=== PATIENT | female | born 1995 | race Caucasian/White ===

== ENCOUNTER 2016-03-09 15:15 | Emergency (ER) | payer BC, OTHER ==
[~2016-03-09] VITALS: Ht 167.6 cm; Wt 59.1 kg
[~2016-03-09 15:15] MED LIST: MAGIC1 PO
[2016-03-09 15:34] VITALS: BP 119/75; PULSE 113; TEMP 37.2; O2SAT 100; Ht 167.6 cm; Wt 59.1 kg
== END 2016-03-09 16:10 | disposition left against medical advice (07) ==
LOC: C.EDB 15:16
DX: R05 Cough (principal)

== ENCOUNTER → 2016-04-06 | Outpatient (CLI) | payer BC, OTHER ==
[2016-04-08 03:42] LABS: CHLAMYDIA TRACH RNA*** NOT DETECTED (NOT DETECTED); GC (NEIS GONORRHOEAE)RNA** NOT DETECTED (NOT DETECTED)
== END | disposition home or self-care (01) ==
LOC: C.LABSPEC 17:52
PROVIDERS: ATTEND Obstetrics & Gynecology
DX: Z11.3 Encounter for screening for infections with a predominantly sexual mode of transmission (principal)

== ENCOUNTER 2017-04-08 15:05 | Emergency (ER) | payer OTHER ==
[~2017-04-08] VITALS: Ht 175.3 cm; Wt 64.6 kg
[2017-04-08 15:15] VITALS: TEMP 36.8; Ht 175.3 cm; Wt 64.6 kg
[2017-04-08] MEDS ORDERED: PROPARACAINE HCL 0.5% OP SOLN 15 ML BTL ONE (15:22)
[2017-04-08] MEDS ORDERED: BCPILLS PO (16:01)
[2017-04-08 16:25] LABS: BASO % 0.3 %; BASO ABS # 0.03 K/uL (0-0.2); EOS % 0.5 %; EOS ABS # 0.05 K/uL (0-0.5); HEMATOCRIT 42.3 % (37-47); HEMOGLOBIN 13.9 g/dL (12.0-16.0); IG# 0.01 K/uL (0.00-0.02); LYMPH % 25.6 %; LYMPH ABS # 2.58 K/uL (1.2-3.4); MEAN CELL VOLUME 90.2 fL (80-100); MEAN CORPUSCULAR HEMOGLOBIN 29.6 pg (25-34); MEAN CORPUSCULAR HGB CONC 32.9 g/dl (32-36); MEAN PLATELET VOLUME 11.1 fL (7.4-10.4); MONO % 5.3 %; MONO ABS # 0.53 K/uL (0.11-0.59); NEUT % 68.2 %; NEUT ABS # 6.86 K/uL (1.4-6.5); PLATELET COUNT 338 K/uL (130-400); RED CELL DISTRIBUTION WIDTH CV 14.3 % (11.5-14.5); RED CELL DISTRIBUTION WIDTH SD 46.6 fL (36.4-46.3); WHITE BLOOD COUNT 10.06 K/uL (4.8-10.8)
--- NOTE | 2017-04-08 16:32 | DIAGNOSTIC IMAGING REPORT ---
HEAD CT NONCONTRAST CT DOSE: 638.56 mGycm HISTORY: R eye pain, R temporal pain. Photosensitivity TECHNIQUE: Multiaxial CT images of the head were performed without the use of intravenous contrast. Automated exposure control was utilized for this study. A dose lowering technique was utilized adhering to the principles of ALARA. Comparison: None. Findings: The paranasal sinuses and mastoid air cells are clear. The calvarium and skull base are intact. The ventricles and sulci are within normal limits. There is no mass, hematoma, midline shift, or acute infarct. Impression: No acute intracranial abnormality. Electronically signed by: Myles Craft M.D. 04/08/2017 4:31 PM Dictated Date/Time: 04/08/2017 4:09 PM
[2017-04-08 16:47] LABS: ALT/SGPT 23 U/L (12-78); AST/SGOT 13 U/L (15-37); BLOOD UREA NITROGEN 21 mg/dl (7-18); CALCIUM 9.3 mg/dl (8.5-10.1); CARBON DIOXIDE 28 mmol/L (21-32); CREATININE 0.69 mg/dl (0.60-1.20); GLUCOSE 85 mg/dl (70-99); POTASSIUM 4.2 mmol/L (3.5-5.1); SODIUM 135 mmol/L (136-145)
[2017-04-08 16:50] LABS: ALKALINE PHOSPHATASE 86 U/L (45-117); TOTAL PROTEIN 8.3 gm/dl (6.4-8.2)
--- NOTE | 2017-04-08 18:18 | EMERGENCY ROOM VISIT NOTE ---
History First contact with patient: 15:24 Chief Complaint: EYE ASSESSMENT Stated Complaint: PAIN IN [place]INDU[place], WATERY EYES X'S 5 DAYS History of Present Illness The patient is a 21 year old female who presents to the Emergency Room via private vehicle accompanied by mother with complaints of "pain in [place], watery eyes 5 days". The patient states that she has had pain in her right presybeterian for the past 5 days. She states it began Wednesday. There is no trauma. There is no migraine or headache history. She's never had this before. It is in the right pole region and now notes that her right eye is becoming involved and is steering/lack remaining a lot. She notes photosensitivity. She also notes blurry vision from the right eye. She states that in class today it was difficult reading the screen from the right eye. She denies any true eye pain rather it's more behind into the side of the eye. Review of Systems A complete 10-point Review of Systems was discussed with the patient, with pertinent positives and negatives listed in the History of Present Illness. All remaining Review of Systems questions can be considered negative unless otherwise specified. Past Medical/Surgical History Medical Problems: (1) Herpes zoster (2) Migraine Social History Smoking Status: Never Smoker Housing Status: lives with family Occupation Status: student Current/Historical Medications Scheduled Control Pills ( Control Pills), 1 TAB PO DAILY Physical Exam Vital Signs Date Time Temp Pulse Resp B/P (MAP) Pulse Ox O2 Delivery O2 Flow Rate FiO2 04/08/17 18:40 71 16 111/71 99 04/08/17 17:10 74 16 107/68 100 Room Air 04/08/17 15:15 36.8 76 17 127/66 100 Room Air Right Eye Acuity: 20/13 Left Eye Acuity: 20/15 Physical Exam VITAL SIGNS - Vital signs and nursing notes were reviewed. Stable. GENERAL -21-year-old female appearing her stated age who is in no acute distress. Communicates well with provider and answers questions appropriately. SKIN - Without rashes. No petechia or meningeal rash. The skin overlying the right eye is unremarkable. HEAD - NC/AT. EYES - PERRL with EOMI bilaterally. Sclera anicteric. Slit lamp as further described. There is no abnormality noted to inspection of the right eye other than the eyelid is partially closed. EARS - No deformities of external structures noted on gross examination bilaterally. External auditory canals without discharge or otorrhea. Tympanic membranes pearly berg without retraction or bulging. No fluid or purulent material visualized behind the TM. Handle of malleus, umbo, cone of light, pars tensa/flaccid all easily visualized. NOSE - No epistaxis or purulent drainage noted. MOUTH/OROPHARYNX - Without perioral cyanosis. NECK - Neck with FROM. No nuchal rigidity. LUNGS - Chest wall symmetric without accessory muscle use, intercostals retractions, or central cyanosis. Normal vesicular breath sounds CTA B/L. No wheezes, rales, or rhonchi appreciated. CARDIAC - RRR with S1/S2. No murmur, rubs, or gallops appreciated. EXTREMITIES - +5/5 strength noted in UE/LE bilaterally. NEUROLOGIC - Cranial nerves II through XII grossly intact. Sensory intact to light touch throughout. PSYCH - A&O, and cooperates fully with examiner. Pt is very pleasant and interacts well with examiner. Slit Lamp Examination was performed of the r eye(s). Alcaine drops were applied to the affected eye(s) for proper anesthetization. The affected eye(s) were stained with Fluorescein stain to precipitate adequate visualization of any conjunctival/scleral excoriations or ulcers. The patient's face was comfortably rested on the chin guard of the slit lamp apparatus. The lights were dimmed and the affected eye(s) were thoroughly examined under microscopy using the blue light. no uptake was present in the eye. Additionally, the eye(s) were examined under microscopy using the regular light. Close examination revealed no abnormalities. Patient tolerated the procedure well and no complications were met. An Automated Tonometer was utilized to obtain bilateral orbital pressures. The pressures in the LEFT eye were found to be 22, 24 with an average of 23. The pressures in the RIGHT eye were found to be 21, 16 with an average of 18.5. Patient tolerated the procedure well and no complications were met. Medical Decision & Procedures ER Provider Diagnostic Interpretation: HEAD CT NONCONTRAST CT DOSE: 638.56 mGycm HISTORY: R eye pain, R temporal pain. Photosensitivity TECHNIQUE: Multiaxial CT images of the head were performed without the use of intravenous contrast. Automated exposure control was utilized for this study. A dose lowering technique was utilized adhering to the principles of ALARA. Comparison: None. Findings: The paranasal sinuses and mastoid air cells are clear. The calvarium and skull base are intact. The ventricles and sulci are within normal limits. There is no mass, hematoma, midline shift, or acute infarct. Impression: No acute intracranial abnormality. Electronically signed by: Myles Craft M.D. 04/08/2017 4:31 PM Dictated Date/Time: 04/08/2017 4:09 PM Laboratory Results 04/08/17 16:10 Red Blood Count 4.69, Mean Corpuscular Volume 90.2, Mean Corpuscular Hemoglobin 29.6, Mean Corpuscular Hemoglobin Concent 32.9, Mean Platelet Volume 11.1, Neutrophils (%) (Auto) 68.2, Lymphocytes (%) (Auto) 25.6, Monocytes (%) (Auto) 5.3, Eosinophils (%) (Auto) 0.5, Basophils (%) (Auto) 0.3, Neutrophils # (Auto) 6.86, Lymphocytes # (Auto) 2.58, Monocytes # (Auto) 0.53, Eosinophils # (Auto) 0.05, Basophils # (Auto) 0.03 04/08/17 16:10 Test 04/08/17 16:10 White Blood Count 10.06 K/uL (4.8-10.8) Red Blood Count 4.69 M/uL (4.2-5.4) Hemoglobin 13.9 g/dL (12.0-16.0) Hematocrit 42.3 % (37-47) Mean Corpuscular Volume 90.2 fL (80-100) Mean Corpuscular Hemoglobin 29.6 pg (25-34) Mean Corpuscular Hemoglobin Concent 32.9 g/dl (32-36) Platelet Count 338 K/uL (130-400) Mean Platelet Volume 11.1 fL (7.4-10.4) Neutrophils (%) (Auto) 68.2 % Lymphocytes (%) (Auto) 25.6 % Monocytes (%) (Auto) 5.3 % Eosinophils (%) (Auto) 0.5 % Basophils (%) (Auto) 0.3 % Neutrophils # (Auto) 6.86 K/uL (1.4-6.5) Lymphocytes # (Auto) 2.58 K/uL (1.2-3.4) Monocytes # (Auto) 0.53 K/uL (0.11-0.59) Eosinophils # (Auto) 0.05 K/uL (0-0.5) Basophils # (Auto) 0.03 K/uL (0-0.2) RDW Standard Deviation 46.6 fL (36.4-46.3) RDW Coefficient of Variation 14.3 % (11.5-14.5) Immature Granulocyte % (Auto) 0.1 % Immature Granulocyte # (Auto) 0.01 K/uL (0.00-0.02) Erythrocyte Sedimentation Rate 23 mm/hr (0-21) Anion Gap 3.0 mmol/L (3-11) Est Creatinine Clear Calc Drug Dose 132.6 ml/min Estimated GFR () 145.2 Estimated GFR (Non- 125.3 BUN/Creatinine Ratio 29.9 (10-20) Calcium Level 9.3 mg/dl (8.5-10.1) Magnesium Level 2.2 mg/dl (1.8-2.4) Total Bilirubin 0.3 mg/dl (0.2-1) Aspartate Amino Transf (AST/SGOT) 13 U/L (15-37) Alanine Aminotransferase (ALT/SGPT) 23 U/L (12-78) Alkaline Phosphatase 86 U/L (45-117) C-Reactive Protein < 0.29 mg/dl (0-0.29) Total Protein 8.3 gm/dl (6.4-8.2) Albumin 4.0 gm/dl (3.4-5.0) Globulin 4.3 gm/dl (2.5-4.0) Albumin/Globulin Ratio 0.9 (0.9-2) Human Chorionic Gonadotropin, Qual NEG (NEG) Lyme Disease IgG Antibody NEG (NEG) Lyme Disease IgM Antibody NEG (NEG) Medical Decision Patient was seen and evaluated as above. She presents to us today appearing nontoxic, and converses well. She has pain around the right thigh. It is mostly laterally overlying the temporal region. There is some tenderness in this region. IV access was initiated, and the above workup was performed. CT of the head was negative. This was obtained after discussing benefits versus risk. There is no concern leukocytosis or anemia. Patient's ESR is slightly elevated, however CRP is negative. I would expect much higher values to be consistent with that of temporal arteritis. Her visual acuity is unremarkable. With a normal slit-lamp exam, and pressures I do not suspect any acute anterior chamber and etiology. I suspect this is either trigeminal neuralgia, perhaps it could be a cluster headache or temporal arteritis. I believe that further evaluation with an eye exam is appropriate in the outpatient setting as well as perhaps neurology. Case was discussed with the attending physician. I then spoke with the on-call residence leasing agent, Dr. Byrne. He recommended the patient have an eye exam tomorrow. She is to call to set this up. She is also to call her family doctor for potential referral to neurology. She is to return with worsening. She was educated upon management, educated upon worrisome symptoms which to return, had questions answered prior to discharge, and was discharged home in good condition. In the evaluation and treatment of this patient, the following differential diagnoses were considered: Concussion, Contrecoup Injury, Brain Tumor, Depression, Encephalitis, Hypothyroidism, Meningitis, CVA, TIA, Migraine, Cluster Headache, Intracranial Abnormality, Intracranial Hemorrhage, Subdural Hematoma, Subarachnoid Hemorrhage, Hydrocephalus, Corneal Abrasion, Conjunctivitis, Eye Contusion, Globe Injury, Orbital Floor Injury (Blowout Fracture), Corneal Ulcer, Keratitis, Herpes Zoster Opthalmic, Blepharitis, Orbital Cellulitis, Iritis, Scleritis/Episcleritis, Uveitis, Temporal Arteritis , Subconjunctival Hemorrhage. Impression Primary Impression: Acute right eye pain Additional Impressions: Headache Excessive lacrimation Departure Information Dispostion Home / Self-Care Condition GOOD Referrals Norma Oshea D.O. (PCP) Roderick Byrne M.D. Hyman, Brian A., M.D. Patient Instructions [facility] Additional Instructions You have been treated in the Emergency Department for a Headache. For pain control, you can use the following [id number] medicines: - Regular strength (325mg/tab) Tylenol (acetaminophen) 2 tabs every 4-6 hours as needed. Do not exceed 12 tablets in a 24 hour period. Avoid taking more than 3 grams (3000 mg) of Tylenol per day. This includes any other sources of acetaminophen you may take on a regular basis. - Regular strength (200 mg/tab) Advil (ibuprofen) 1-2 tabs every 4-6 hours as needed. Do not exceed a dose of 3200 mg per day. You should relax in a quiet, dark place for the rest of the day. Avoid any possible triggers including: cigarette smoke, caffeine, nicotine, chocolate, wine, beer, loud noises or music, or bright lights. You should call the eye doctor tomorrow and tell them that Dr. Byrne would like you to have an eye exam tomorrow (as you were seen in the ER) You should also call your family doctor so they can decide if a referral to neurology (Dr. Forte) is reasonable. Return to the Emergency Department if your current symptoms worsen despite treatment course outlined above, or if you develop any of the following symptoms : intractable pain despite aforementioned treatment course, visual disturbances , loss of vision, unilateral weakness or facial drooping, slurring of speech, loss of coordination, or loss of consciousness. Please return with any new/concerning symptoms Problem Qualifiers
[2017-04-08 18:40] VITALS: BP 111/71; PULSE 71; O2SAT 99
== END 2017-04-08 18:41 | disposition home or self-care (01) ==
LOC: C.EDB 15:08 → C.EDD 18:41
DX: H57.11 Ocular pain, right eye (principal); R51 Headache; H04.211 Epiphora due to excess lacrimation, right lacrimal gland; B02.9 Zoster without complications; Z79.3 Long term (current) use of hormonal contraceptives

== ENCOUNTER → 2017-06-25 | Outpatient (CLI) | payer OTHER ==
[~2017-06-25] MED LIST changes: +BCPILLS PO; +GADAVIST IV PRN; -MAGIC1 PO
--- NOTE | 2017-06-25 17:49 | DIAGNOSTIC IMAGING REPORT ---
BRAIN COMBO CLINICAL HISTORY: HEADACHES mental status change COMPARISON STUDY: No previous studies for comparison. TECHNIQUE: Utilizing a 1.5 Lani magnet and dedicated coil, multiplanar, multiecho imaging of the brain was performed pre and postcontrast administration. IV administration of 6 mL of Gadavist contrast was uneventful. FINDINGS: Diffusion-weighted images are considered negative for an acute ischemic insult. Signal characteristics are otherwise unremarkable. Coronal FLAIR images suggest a slight increase in signal medial right cerebellum coronal image 17. This is felt to be artifactual. No abnormal postcontrast enhancement. Sella and parasellar regions are unremarkable. Internal artery canals are symmetric. IMPRESSION: Normal study The above report was generated using voice recognition software. It may contain grammatical, syntax or spelling errors. Electronically signed by: Marco Moreno M.D. 06/25/2017 5:48 PM Dictated Date/Time: 06/25/2017 5:44 PM
--- NOTE | 2017-06-25 17:52 | DIAGNOSTIC IMAGING REPORT ---
ORBIT COMBO HISTORY: 21 years-old Female HEADACHES acute headache with blurred vision COMPARISON: Head CT 04/08/2017 TECHNIQUE: Multiplanar multisequence MRI of the orbits was obtained both with and without the use of 6 mL Gadavist FINDINGS: Large [id number] fan mail clerk localizer images demonstrate no gross abnormality. Midline structures including the corpus callosum, brainstem, optic chiasm, pituitary and pineal glands appear unremarkable on the sagittal T1 series. The study however is not tailored to assess the brain structures. No cerebellar tonsillar herniation. Imaged cervical spine is unremarkable. Mild adenoid tonsillar hyperplasia without definite narrowing of the nasopharynx. The bilateral 7th and 8th nerves and internal auditory canals appear normal. Cisternal portions of the 5th cranial nerves are within normal limits. No cerebellar pontine angle mass. The bilateral globes, orbits and lacrimal glands are within normal limits. No inflammatory changes or abnormal enhancement. Extraocular musculature and optic nerves are within normal limits. Mild rightward bowing and spurring of the nasal septum with mild ethmoid and right maxillary sinus disease. IMPRESSION: 1. Unremarkable appearance of the bilateral globes and orbits without inflammatory changes or abnormal enhancement. 2. Mild ethmoid and right maxillary sinus disease. The above report was generated using voice recognition software. It may contain grammatical, syntax or spelling errors. Electronically signed by: Tye Rutherford M.D. 06/25/2017 5:51 PM Dictated Date/Time: 06/25/2017 5:43 PM
== END | disposition home or self-care (01) ==
LOC: C.MRI 15:55
PROVIDERS: ATTEND Family Medicine
DX: R51 Headache (principal); R41.82 Altered mental status, unspecified; J01.20 Acute ethmoidal sinusitis, unspecified; J01.00 Acute maxillary sinusitis, unspecified